=== PATIENT | male | born 1955 | race Caucasian/White ===

== ENCOUNTER 2017-05-26 17:11 | Emergency (ER) | payer OTHER ==
[~2017-05-26] VITALS: Ht 121.9 cm; Wt 54.0 kg
[~2017-05-26 17:11] MED LIST: AMLODIPINE BESYL5 MG PO; ASPIRIN E.C.81 M1 PO; ATENOLOL25 M1 PO; ATENOLOL50 M1 PO; AVENTYL,PAMELOR25 MG PO; Aspirin E.C. PO; Chronulac,Cephulac,E PO; Cytotec PO; DICLOFENAC SODI75 MG PO; ENDOCET 5-3251 EACH PO; FLOMAX0.4 M1 PO; FOLVITE1 MG PO; Flomax PO; GLUCOPHAGE500 M1 PO; GLUCOPHAGE500 MG PO; INDOCIN SR75 MG PO; MORPHINE SULFAT30 M2 PO; NEURONTIN300 MG PO; NORVASC5 MG PO; Neurontin PO; OXYCODONE PO; OXYCODONE-APAP1 EACH; PRAVACHOL40 MG PO; Percocet 5/325,Endoc PO; PriLOSEC PO; Santyl TP; TOPAMAX100 MG PO; TYLENOL REGULA325 MG PO; Tenormin PO; Topamax PO; Xifaxan PO; ZESTRIL30 MG PO; Zestril PO
[2017-05-26 18:28] LABS: EOSINOPHIL (%) 2.2 % (0-5); EOSINOPHIL COUNT 0.2 K/uL (0-0.3); HEMATOCRIT 41.3 % (38.0-50.0); IMMATURE GRANULOCYTE (%) 0.5 % (0.0-0.7); IMMATURE GRANULOCYTE COUNT 0.1 K/uL; INSTRUMENT ABS NEUTROPHIL CT 7.5 K/uL; LYMPHOCYTE COUNT 2.2 K/uL (1.0-2.8); MCH 27.5 PG (29.0-34.0); MCHC 32.7 G/DL (30.0-36.0); MCV 84.1 FL (86-99); MEAN PLAT.VOLUME 9.7 uM^3 (9.0-12.4); MONOCYTE (%) 5.6 % (3-12); MONOCYTE COUNT 0.6 K/uL (0-0.8); NEUTROPHIL (%) 70.7 % (45-76); NEUTROPHIL COUNT 7.5 K/uL (1.8-6.4); PLATELET COUNT 255 K/uL (156-360); RBC DIS.WIDTH-CV 15.3 % (11.8-14.6); RBC DIS.WIDTH-SD 46.5 % (39-53); RED BLOOD COUNT 4.91 M/uL (4.00-5.50); WHITE BLOOD COUNT 10.6 K/uL (4.1-10.2)
[2017-05-26 18:39] LABS: CHLORIDE 106 mEq/L (99-109); POTASSIUM 3.7 mEq/L (3.7-5.4); SODIUM 140 mEq/L (136-147)
[2017-05-26 18:41] LABS: GLUCOSE 81 mg/dL (70-99)
[2017-05-26 18:42] LABS: ANION GAP 12 MEQ/L (2-14)
[2017-05-26 18:43] LABS: TOTAL BILIRUBIN 0.3 mg/dL (0.0-1.0)
[2017-05-26 18:44] LABS: ALKALINE PHOSPHATASE 96 IU/L (3-129)
[2017-05-26 18:45] LABS: GFR ESTIMATE (CALCULATED) > 59 mL/min/
[2017-05-26 18:46] LABS: UREA NITROGEN (BUN) 16 mg/dL (9-23)
[2017-05-26 18:53] LABS: TROP-I INTERPRETATION NEGATIVE; TROPONIN-I < 0.01 ng/mL (0.0-0.30)
[2017-05-26 23:10] VITALS: BP 127/70
== END 2017-05-26 23:11 | disposition home or self-care (01) ==
LOC: EME → EDBD 17:11 → EME 17:11
PROVIDERS: Emergency Medicine
DX: R07.9 Chest pain, unspecified (principal); Z86.73 Personal history of transient ischemic attack (TIA), and cerebral infarction without residual deficits; E11.9 Type 2 diabetes mellitus without complications; Z79.84 Long term (current) use of oral hypoglycemic drugs; I10 Essential (primary) hypertension; K21.9 Gastro-esophageal reflux disease without esophagitis; R56.9 Unspecified convulsions; F17.200 Nicotine dependence, unspecified, uncomplicated; Z79.82 Long term (current) use of aspirin
CPT/HCPCS: 71020; 71250; 80053; 84484; 85025; 85379; 93005; 99281; 99285